=== PATIENT | male | born 1980 | race Caucasian/White ===

== ENCOUNTER 2020-04-15 16:49 | Inpatient (IN) ==
[2020-04-15] MEDS ORDERED: *HR* HYDROmorphone 2 MG/ML SYRINGE IM ONE (18:03)
[2020-04-15] MEDS ORDERED: Ondansetron ODT 4 MG TAB.RAPDIS SL ONE (18:05)
[2020-04-15 18:08] LABS: INR 1.2; Prothrombin Time 13.4 Seconds (9.4-12.1)
[2020-04-15 18:10] LABS: Activated Partial Thrombo Time 26.1 Seconds (26.0-36.0)
[2020-04-15 18:16] LABS: Basophils % 0.2 %; Eosinophils # 0.1 K/mcL (0.0-0.6); Eosinophils % 1.5 %; Hematocrit 39.5 % (37.5-50.1); Immature Granulocytes % 0.5 % (0-4); Lymphocytes # 1.7 K/mcL (0.6-4.6); Lymphocytes % 18.3 %; Mean Corpuscular HGB Conc 33.7 g/dL (31.6-35.5); Mean Corpuscular Hemoglobin 28.9 pg (28.0-33.3); Mean Corpuscular Volume 85.7 fL (83.0-100.0); Mean Platelet Volume 9.1 fL (9.4-12.4); Monocytes # 0.7 K/mcL (0.0-1.3); Monocytes % 7.4 %; Neutrophils # 6.8 K/mcL (1.6-8.9); Platelet Count 208 K/mcL (140-400); Red Blood Count 4.61 M/mcL (4.19-5.50); Red Cell Distribution Width 12.3 % (11.5-14.5); Segmented Neutrophils % 72.1 %; White Blood Count 9.4 K/mcL (4.3-11.1)
[2020-04-15 18:18] LABS: Hemoglobin 13.3 g/dL (12.9-16.9)
[2020-04-15 18:23] LABS: Alanine Aminotransferase 12 Units/L (7-52); Albumin 3.4 g/dL (3.5-5.7); Alkaline Phosphatase 67 Units/L (34-104); Aspartate Amino Transferase 10 Units/L (13-39); BUN/Creatinine Ratio 22 (6-26); Bilirubin,Total 0.8 mg/dL (0.3-1.0); Blood Urea Nitrogen 14 mg/dL (6-20); Calcium 8.8 mg/dL (8.6-10.3); Carbon Dioxide 27 mEq/L (23-29); Chloride 98 mEq/L (98-107); Globulin 3.5 g/dL (2.4-3.5); Glucose 340 mg/dL (70-105); Osmolality,Calculated 288 (280-300); Potassium 4.3 mEq/L (3.5-5.1); Sodium 132 mEq/L (136-145); Total Protein 6.9 g/dL (6.4-8.9); eGFR For African Americans > 60 (> 60); eGFR For Non-African Americans > 60 (> 60)
[2020-04-15] MEDS ORDERED: Lidocaine -MPF 1% 2 ML VIAL INFILT ONE (19:52)
[2020-04-15] MEDS ORDERED: *HR* HYDROmorphone (PF) 1 MG/ML SYRINGE IVP ONE (20:16)
[2020-04-15] MEDS ORDERED: Vancomycin 1,500 MG/265 ML IV.SOLN IVPB STA (20:32)
[2020-04-15 20:40] LABS: Source,Synovial Fluid left knee
[2020-04-15 21:26] LABS: Appearance,Synovial Fluid Cloudy (Clear-Hazy); Color,Synovial Fluid Straw (Straw)
[2020-04-15] MEDS ORDERED: Acetaminophen 325 MG TABLET PO PRN (21:35)
[2020-04-15] MEDS ORDERED: Naloxone 0.4 MG/ML INJ IVP PRN (21:36)
[2020-04-16] MEDS ORDERED: Ondansetron 4 MG/2 ML VIAL IVP PRN (00:08)
[2020-04-16] MEDS ORDERED: *HR* Dextrose 50 % in Water (Vial) 50 ML VIAL IVP PRN (01:18)
[2020-04-16] MEDS ORDERED: D5% in Water 1,000 ML IVC PRN (01:18)
[2020-04-16] MEDS ORDERED: Dextrose Gel 15 GM/37.5 ML TUBE PO PRN ×2 (01:18)
[2020-04-16] MEDS ORDERED: Ketorolac 15 MG/ML VIAL IVP PRN (04:40)
[2020-04-16] MEDS ORDERED: Insulin LISPRO 300 UNITS/3 ML VIAL SQ SCH (06:00)
[2020-04-16] MEDS ORDERED: 0.9 % Sodium Chloride 1,000 ML IVC ONE (06:05)
[2020-04-16 06:42] LABS: Hematocrit 40.7 % (37.5-50.1); Hemoglobin 13.8 g/dL (12.9-16.9); Mean Corpuscular HGB Conc 33.9 g/dL (31.6-35.5); Mean Corpuscular Hemoglobin 29.1 pg (28.0-33.3); Mean Corpuscular Volume 85.9 fL (83.0-100.0); Mean Platelet Volume 8.9 fL (9.4-12.4); Platelet Count 221 K/mcL (140-400); Red Blood Count 4.74 M/mcL (4.19-5.50); Red Cell Distribution Width 12.3 % (11.5-14.5); White Blood Count 8.5 K/mcL (4.3-11.1)
[2020-04-16 07:03] LABS: BUN/Creatinine Ratio 29 (6-26); Blood Urea Nitrogen 14 mg/dL (6-20); Calcium 8.7 mg/dL (8.6-10.3); Carbon Dioxide 23 mEq/L (23-29); Chloride 98 mEq/L (98-107); Glucose 255 mg/dL (70-105); Osmolality,Calculated 283 (280-300); Sodium 132 mEq/L (136-145); eGFR For African Americans > 60 (> 60); eGFR For Non-African Americans > 60 (> 60)
[2020-04-16] MEDS: Vancomycin 1,500 MG/265 ML IV.SOLN IVPB SCH ×2 (08:53→20:37)
[2020-04-16] MEDS ORDERED: ALPRAZolam 1 MG TABLET PO PRN (09:54)
[2020-04-16] MEDS ORDERED: *HR* HYDROmorphone (PF) 1 MG/ML SYRINGE IVP PRN (09:58)
[2020-04-16] MEDS ORDERED: levoFLOXacin 750 MG/150 ML 750 MG/150 ML BAG IVPB SCH (10:00)
[2020-04-16] MEDS: Insulin LISPRO 300 UNITS/3 ML VIAL SQ SCH ×2 (11:04→17:09)
[2020-04-16] MEDS: Gabapentin 400 MG CAPSULE PO SCH ×2 (14:22→20:37)
[2020-04-16] MEDS ORDERED: Insulin DETEMIR 100 UNIT/ML X5UNITS SQ SCH (21:00)
[2020-04-17 05:01] LABS: Basophils % 0.3 %; Eosinophils # 0.1 K/mcL (0.0-0.6); Eosinophils % 1.7 %; Hematocrit 38.9 % (37.5-50.1); Hemoglobin 13.2 g/dL (12.9-16.9); Immature Granulocytes % 0.7 % (0-4); Lymphocytes # 1.8 K/mcL (0.6-4.6); Lymphocytes % 25.3 %; Mean Corpuscular HGB Conc 33.9 g/dL (31.6-35.5); Mean Corpuscular Hemoglobin 28.8 pg (28.0-33.3); Mean Corpuscular Volume 84.9 fL (83.0-100.0); Mean Platelet Volume 8.9 fL (9.4-12.4); Monocytes # 0.7 K/mcL (0.0-1.3); Monocytes % 9.4 %; Neutrophils # 4.5 K/mcL (1.6-8.9); Platelet Count 233 K/mcL (140-400); Red Blood Count 4.58 M/mcL (4.19-5.50); Red Cell Distribution Width 12.1 % (11.5-14.5); Segmented Neutrophils % 62.6 %; White Blood Count 7.2 K/mcL (4.3-11.1)
[2020-04-17 05:18] LABS: BUN/Creatinine Ratio 22 (6-26); Blood Urea Nitrogen 11 mg/dL (6-20); Calcium 8.7 mg/dL (8.6-10.3); Carbon Dioxide 25 mEq/L (23-29); Chloride 98 mEq/L (98-107); Glucose 265 mg/dL (70-105); Osmolality,Calculated 281 (280-300); Potassium 3.8 mEq/L (3.5-5.1); Sodium 131 mEq/L (136-145); eGFR For African Americans > 60 (> 60); eGFR For Non-African Americans > 60 (> 60)
[2020-04-17] MEDS ORDERED: Lidocaine -MPF 2% 2 ML VIAL ONE (07:27)
[2020-04-17] MEDS ORDERED: Ondansetron 4 MG/2 ML VIAL ONE (07:27)
[2020-04-17] MEDS ORDERED: Dexamethasone 4 MG/ML VIAL ONE (07:27)
[2020-04-17] MEDS ORDERED: *HR* FentaNYL (PF) 100 MCG/2 ML VIAL ONE (07:27)
[2020-04-17] MEDS ORDERED: *HR* Midazolam HCl 2 MG/2 ML VIAL ONE (07:28)
[2020-04-17] MEDS ORDERED: *HR* Propofol 200 MG/20 ML VIAL IVP ONE (07:28)
[2020-04-17] MEDS ORDERED: *HR* Promethazine 25 MG/ML VIAL IVP PRN ×2 (07:51→09:16)
[2020-04-17] MEDS ORDERED: *HR* Labetalol 20 MG/4 ML SYRINGE IVP PRN (07:51)
[2020-04-17] MEDS ORDERED: *HR* OxyCODONE Immed Rel 5 MG TABLET PO PRN (07:51)
[2020-04-17] MEDS ORDERED: *HR* HYDROmorphone (PF) 1 MG/ML SYRINGE IVP PRN ×2 (07:51→09:16)
[2020-04-17] MEDS ORDERED: Ondansetron 4 MG/2 ML VIAL IVP PRN ×3 (07:51→09:16)
[2020-04-17] MEDS ORDERED: Clindamycin 900 MG/50 ML 900 MG/50 ML IV.SOLN IVPB ONE ×2 (08:03→08:36)
[2020-04-17] MEDS ORDERED: Acetaminophen 325 MG TABLET PO PRN (09:16)
[2020-04-17] MEDS ORDERED: D5% in Water 1,000 ML IVC PRN (09:16)
[2020-04-17] MEDS ORDERED: *HR* Dextrose 50 % in Water (Vial) 50 ML VIAL IVP PRN (09:16)
[2020-04-17] MEDS ORDERED: Ketorolac 15 MG/ML VIAL IVP PRN (09:16)
[2020-04-17] MEDS ORDERED: Naloxone 0.4 MG/ML INJ IVP PRN ×2 (09:16)
[2020-04-17] MEDS ORDERED: Dextrose Gel 15 GM/37.5 ML TUBE PO PRN ×2 (09:16)
[2020-04-17] MEDS ORDERED: MOM Conc 10 ML UD.LIQ PO PRN (09:16)
[2020-04-17] MEDS ORDERED: Ringers Solution, Lactated 1,000 ML IVC SCH (09:16)
[2020-04-17] MEDS ORDERED: Sennosides 8.6 MG TABLET PO PRN (09:16)
[2020-04-17] MEDS: Multivit/Ca/Min/Fe/FA 1 TAB TABLET PO SCH (10:04)
[2020-04-17] MEDS: Gabapentin 400 MG CAPSULE PO SCH ×3 (10:14→20:39)
[2020-04-17] MEDS: Insulin LISPRO 300 UNITS/3 ML VIAL SQ SCH ×2 (11:33→16:43)
[2020-04-17] MEDS: Vancomycin 1,500 MG/265 ML IV.SOLN IVPB SCH ×2 (11:34→23:41)
[2020-04-17] MEDS ORDERED: Gabapentin 400 MG CAPSULE PO SCH (15:00)
[2020-04-17] MEDS: Ascorbic Acid 500 MG TABLET PO SCH (16:44)
[2020-04-17] MEDS: Aspirin Enteric Coated 81 MG Tablet PO SCH (16:44)
[2020-04-17] MEDS: ALPRAZolam 1 MG TABLET PO PRN (16:48)
[2020-04-17] MEDS ORDERED: *HR* Heparin 5,000 UNIT/ML VIAL SQ SCH (18:00)
[2020-04-17] MEDS ORDERED: Insulin DETEMIR 100 UNIT/ML X5UNITS SQ SCH (21:00)
[2020-04-17] MEDS ORDERED: Vancomycin 1,500 MG/265 ML IV.SOLN IVPB SCH (21:00)
[2020-04-18 01:30] LABS: Basophils % 0.1 %; Eosinophils % 0.4 %; Hemoglobin 13.5 g/dL (12.9-16.9); Immature Granulocytes % 0.3 % (0-4); Lymphocytes % 21.2 %; Mean Corpuscular HGB Conc 34.6 g/dL (31.6-35.5); Mean Corpuscular Hemoglobin 29.6 pg (28.0-33.3); Mean Corpuscular Volume 85.5 fL (83.0-100.0); Mean Platelet Volume 9.1 fL (9.4-12.4); Monocytes # 0.8 K/mcL (0.0-1.3); Monocytes % 8.1 %; Neutrophils # 6.6 K/mcL (1.6-8.9); Platelet Count 270 K/mcL (140-400); Red Blood Count 4.56 M/mcL (4.19-5.50); Red Cell Distribution Width 12.1 % (11.5-14.5); Segmented Neutrophils % 69.9 %; White Blood Count 9.4 K/mcL (4.3-11.1)
[2020-04-18 01:41] LABS: BUN/Creatinine Ratio 24 (6-26); Blood Urea Nitrogen 14 mg/dL (6-20); Calcium 8.9 mg/dL (8.6-10.3); Carbon Dioxide 28 mEq/L (23-29); Chloride 97 mEq/L (98-107); Glucose 352 mg/dL (70-105); Osmolality,Calculated 291 (280-300); Potassium 4.4 mEq/L (3.5-5.1); Sodium 133 mEq/L (136-145); eGFR For African Americans > 60 (> 60); eGFR For Non-African Americans > 60 (> 60)
[2020-04-18] MEDS: Gabapentin 400 MG CAPSULE PO SCH ×3 (07:34→20:49)
[2020-04-18] MEDS: Aspirin Enteric Coated 81 MG Tablet PO SCH (07:35)
[2020-04-18] MEDS: Multivit/Ca/Min/Fe/FA 1 TAB TABLET PO SCH (07:35)
[2020-04-18] MEDS: Ascorbic Acid 500 MG TABLET PO SCH ×2 (07:35→16:00)
[2020-04-18] MEDS: Vancomycin 1,500 MG/265 ML IV.SOLN IVPB SCH ×2 (07:36→16:00)
[2020-04-18] MEDS: ALPRAZolam 1 MG TABLET PO PRN ×2 (07:41→22:24)
[2020-04-18] MEDS: Insulin LISPRO 300 UNITS/3 ML VIAL SQ SCH ×4 (08:10→22:24)
[2020-04-18] MEDS ORDERED: levoFLOXacin 750 MG/150 ML 750 MG/150 ML BAG IVPB SCH (09:00)
[2020-04-18] MEDS: Insulin DETEMIR 100 UNIT/ML X5UNITS SQ SCH ×2 (14:48→20:49)
[2020-04-18] MEDS: Vancomycin 1,750 MG/517.5 ML IV.SOLN IVPB SCH (23:53)
[2020-04-19 03:03] LABS: Basophils % 0.4 %; Eosinophils # 0.1 K/mcL (0.0-0.6); Eosinophils % 1.5 %; Hematocrit 38.9 % (37.5-50.1); Hemoglobin 13.5 g/dL (12.9-16.9); Immature Granulocytes % 0.5 % (0-4); Lymphocytes # 2.5 K/mcL (0.6-4.6); Lymphocytes % 30.5 %; Mean Corpuscular HGB Conc 34.7 g/dL (31.6-35.5); Mean Corpuscular Volume 86.4 fL (83.0-100.0); Mean Platelet Volume 8.9 fL (9.4-12.4); Monocytes # 0.8 K/mcL (0.0-1.3); Monocytes % 9.5 %; Neutrophils # 4.8 K/mcL (1.6-8.9); Platelet Count 253 K/mcL (140-400); Segmented Neutrophils % 57.6 %; White Blood Count 8.3 K/mcL (4.3-11.1)
[2020-04-19 03:22] LABS: BUN/Creatinine Ratio 23 (6-26); Blood Urea Nitrogen 11 mg/dL (6-20); Calcium 8.5 mg/dL (8.6-10.3); Carbon Dioxide 26 mEq/L (23-29); Chloride 99 mEq/L (98-107); Glucose 267 mg/dL (70-105); Osmolality,Calculated 283 (280-300); Potassium 3.9 mEq/L (3.5-5.1); Sodium 132 mEq/L (136-145); eGFR For African Americans > 60 (> 60); eGFR For Non-African Americans > 60 (> 60)
[2020-04-19] MEDS: Multivit/Ca/Min/Fe/FA 1 TAB TABLET PO SCH (08:30)
[2020-04-19] MEDS: Gabapentin 400 MG CAPSULE PO SCH ×3 (08:30→19:47)
[2020-04-19] MEDS: Ascorbic Acid 500 MG TABLET PO SCH ×2 (08:30→16:00)
[2020-04-19] MEDS: Aspirin Enteric Coated 81 MG Tablet PO SCH (08:30)
[2020-04-19] MEDS: Insulin DETEMIR 100 UNIT/ML X5UNITS SQ SCH ×2 (08:31→21:41)
[2020-04-19] MEDS: Vancomycin 1,750 MG/517.5 ML IV.SOLN IVPB SCH ×2 (08:35→16:01)
[2020-04-19] MEDS: Insulin LISPRO 300 UNITS/3 ML VIAL SQ SCH ×4 (08:42→21:42)
[2020-04-20] MEDS: Vancomycin 2,000 MG/520 ML IV.SOLN IVPB SCH ×2 (00:01→08:10)
[2020-04-20 03:50] LABS: Basophils % 0.4 %; Eosinophils # 0.1 K/mcL (0.0-0.6); Eosinophils % 1.9 %; Hematocrit 35.4 % (37.5-50.1); Hemoglobin 12.2 g/dL (12.9-16.9); Immature Granulocytes % 0.5 % (0-4); Mean Corpuscular HGB Conc 34.5 g/dL (31.6-35.5); Mean Corpuscular Hemoglobin 28.7 pg (28.0-33.3); Mean Corpuscular Volume 83.3 fL (83.0-100.0); Mean Platelet Volume 8.7 fL (9.4-12.4); Monocytes # 0.7 K/mcL (0.0-1.3); Monocytes % 9.2 %; Neutrophils # 4.7 K/mcL (1.6-8.9); Platelet Count 237 K/mcL (140-400); Red Blood Count 4.25 M/mcL (4.19-5.50); Red Cell Distribution Width 12.1 % (11.5-14.5); White Blood Count 7.5 K/mcL (4.3-11.1)
[2020-04-20 04:09] LABS: BUN/Creatinine Ratio 20 (6-26); Blood Urea Nitrogen 8 mg/dL (6-20); Calcium 8.3 mg/dL (8.6-10.3); Carbon Dioxide 26 mEq/L (23-29); Chloride 98 mEq/L (98-107); Glucose 373 mg/dL (70-105); Osmolality,Calculated 286 (280-300); Potassium 3.9 mEq/L (3.5-5.1); Sodium 131 mEq/L (136-145); eGFR For African Americans > 60 (> 60); eGFR For Non-African Americans > 60 (> 60)
[2020-04-20 06:55] VITALS: BP 146/88
[2020-04-20] MEDS: Multivit/Ca/Min/Fe/FA 1 TAB TABLET PO SCH (08:09)
[2020-04-20] MEDS: Aspirin Enteric Coated 81 MG Tablet PO SCH (08:09)
[2020-04-20] MEDS: Gabapentin 400 MG CAPSULE PO SCH (08:10)
[2020-04-20] MEDS: Ascorbic Acid 500 MG TABLET PO SCH (08:10)
[2020-04-20] MEDS: Insulin DETEMIR 100 UNIT/ML X5UNITS SQ SCH (08:11)
[2020-04-20] MEDS: Insulin LISPRO 300 UNITS/3 ML VIAL SQ SCH (08:11)
[2020-04-20] MEDS: ALPRAZolam 1 MG TABLET PO PRN (08:27)
== END 2020-04-20 11:03 | disposition home health service (06) | DRG 721 ==
LOC: 3NENU 16:49 → EMEROOARM 16:49 → SUATTDRO 21:01 → 3ANU 21:40 → 3NENU 04-16 14:59 → SUATTDRO 04-17 13:12
PROVIDERS: ADMIT Internal Medicine; ATTEND Family Medicine